=== PATIENT | female | born 1960 | race Caucasian/White ===

== ENCOUNTER 2020-03-02 16:21 | Emergency (ER) | payer OTHER ==
[2020-03-02] MEDS ORDERED: SODIUM CHLORIDE 0.9% 500ML 500 ML IV ONE (16:22)
[2020-03-02 17:40] LABS: BASOPHILS % (AUTO) 1.2 % (0.0-5.0); EOSINOPHILS % (AUTO) 2.7 % (0.0-8.0); HEMATOCRIT 44.1 % (36-48); LYMPHOCYTES % (AUTO) 25.2 % (21.0-51.0); MEAN CORPUSCULAR HGB CONC 31.7 g/dL (32.0-36.0); MEAN CORPUSCULAR VOLUME 81.8 fL (79-99); MONOCYTES % (AUTO) 9.9 % (3.0-13.0); NEUTROPHILS % (AUTO) 60.8 % (40.0-77.0); PLATELET COUNT (AUTO) 210 K/uL (130-400); RED BLOOD CELL COUNT(AUTO) 5.39 MIL/uL (4.00-5.50); RED CELL DISTRIBUTION WIDTH 14.6 % (11.0-15.5)
[2020-03-02] MEDS ORDERED: LORAZEPAM 2 MG/ML 1 ML VIAL ONE (17:40)
[2020-03-02 17:52] LABS: CREATININE 0.9 mg/dL (0.5-1.5); POTASSIUM 3.7 mmol/L (3.5-5.1)
[2020-03-02 17:54] LABS: INR 0.88 (0.85-1.15); PARTIAL THROMBOPLASTIN TIME 25.1 SEC (26.3-35.5); PROTHROMBIN TIME 9.5 SEC (9.6-11.6)
[2020-03-02 17:56] LABS: BILIRUBIN,TOTAL 0.3 mg/dL (0.2-1.0); TOTAL PROTEIN, SERUM 7.6 g/dL (6.0-8.3)
[2020-03-02 18:34] LABS: B-TYPE NATRIURETIC PEPTIDE 9 pg/mL (0-100)
== END 2020-03-02 18:55 | disposition home or self-care (01) ==
LOC: EDH 16:21
DX: M54.6 Pain in thoracic spine (principal); E11.9 Type 2 diabetes mellitus without complications; I10 Essential (primary) hypertension; F41.9 Anxiety disorder, unspecified; F32.9 Major depressive disorder, single episode, unspecified; Z88.8 Allergy status to other drugs, medicaments and biological substances
CPT/HCPCS: 36415; 71045; 80053; 82550; 83880; 84484; 85025; 85610; 85730; 93005; 96374; 99285; J2060; J7040

== ENCOUNTER 2020-11-23 03:36 | Emergency (ER) | payer OTHER ==
[2020-11-23] MEDS ORDERED: MORPHINE 2 MG SYG ONE ×2 (03:46→04:46)
[2020-11-23] MEDS ORDERED: ASPIRIN 325 MG TABLET ONE (03:46)
[2020-11-23 03:58] LABS: BASOPHILS % (AUTO) 1.1 % (0.0-5.0); EOSINOPHILS % (AUTO) 3.2 % (0.0-8.0); LYMPHOCYTES % (AUTO) 33.6 % (21.0-51.0); MEAN CORPUSCULAR HEMOGLOBIN 25.4 pg (27.0-33.0); MEAN CORPUSCULAR HGB CONC 31.1 g/dL (32.0-36.0); MEAN CORPUSCULAR VOLUME 81.6 fL (79-99); MONOCYTES % (AUTO) 11.4 % (3.0-13.0); NEUTROPHILS % (AUTO) 50.4 % (40.0-77.0); PLATELET COUNT (AUTO) 221 K/uL (130-400); RED BLOOD CELL COUNT(AUTO) 5.39 MIL/uL (4.00-5.50); WHITE BLOOD COUNT (AUTO) 7.5 K/uL (4.8-10.8)
[2020-11-23 04:07] LABS: CREATININE 0.9 mg/dL (0.5-1.5); POTASSIUM 3.4 mmol/L (3.5-5.1)
[2020-11-23 04:11] LABS: ALBUMIN 4.2 g/dL (3.5-5.0); BILIRUBIN,TOTAL 0.3 mg/dL (0.2-1.0); TOTAL PROTEIN, SERUM 8.1 g/dL (6.0-8.3)
[2020-11-23 04:16] LABS: INR 0.9 (0.85-1.15); PROTHROMBIN TIME 9.9 SEC (9.6-11.6)
[2020-11-23 04:17] LABS: PARTIAL THROMBOPLASTIN TIME 24.9 SEC (26.3-35.5)
[2020-11-23] MEDS ORDERED: LIDOCAINE 5% TOPICAL PATCH TP ONE (04:45)
[2020-11-23] MEDS ORDERED: KETOROLAC 30MG VIAL (30MG/ML) ONE (04:46)
[2020-11-23] MEDS ORDERED: DIAZEPAM 5 MG TABLET ONE (04:46)
== END 2020-11-23 06:16 | disposition home or self-care (01) ==
LOC: EDH 03:36
DX: M62.830 Muscle spasm of back (principal); F41.9 Anxiety disorder, unspecified; F32.9 Major depressive disorder, single episode, unspecified; E11.9 Type 2 diabetes mellitus without complications; E78.00 Pure hypercholesterolemia, unspecified; I10 Essential (primary) hypertension; K21.9 Gastro-esophageal reflux disease without esophagitis; Z88.6 Allergy status to analgesic agent
CPT/HCPCS: 36415; 71045; 80053; 82550; 84484; 85025; 85378; 85610; 85730; 93005; 96374; 96375; 99285; J1885

== ENCOUNTER 2021-09-10 14:14 | Emergency (ER) | payer OTHER ==
[~2021-09-10] VITALS: Ht 152.4 cm; Wt 74.8 kg
[2021-09-10 14:18] VITALS: BP 158/91
[2021-09-10] MEDS ORDERED: ACETAMINOPHEN WITH CODEINE 1 TAB TAB PO ONE (17:30)
[2021-09-10] MEDS ORDERED: IBUPROFEN 600 MG TABLET PO ONE (17:30)
[2021-09-10] MEDS ORDERED: IBUP-2070 PO (18:01)
[2021-09-10] MEDS ORDERED: ORPH-43 PO (18:01)
== END 2021-09-10 18:14 | disposition home or self-care (01) ==
LOC: EDH 14:14 → EEVIPCON 14:14 → EDH 18:14
DX: S09.90XA Unspecified injury of head, initial encounter (principal); M54.2 Cervicalgia; Z88.8 Allergy status to other drugs, medicaments and biological substances; Y04.2XXA Assault by strike against or bumped into by another person, initial encounter; Y93.89 Activity, other specified; Y92.89 Other specified places as the place of occurrence of the external cause; Y99.8 Other external cause status
CPT/HCPCS: 70450; 72125

== ENCOUNTER → 2021-12-11 | Outpatient (CLI) | payer OTHER ==
[~2021-12-11] MED LIST: IBUP-2070 PO; ORPH-43 PO
== END | disposition home or self-care (01) ==
LOC: RAH 10:00
PROVIDERS: ATTEND Orthopaedic Surgery
DX: M17.12 Unilateral primary osteoarthritis, left knee (principal); M25.762 Osteophyte, left knee; M16.0 Bilateral primary osteoarthritis of hip; M25.752 Osteophyte, left hip; M25.751 Osteophyte, right hip; M19.072 Primary osteoarthritis, left ankle and foot; M77.32 Calcaneal spur, left foot
CPT/HCPCS: 73700

== ENCOUNTER 2022-04-22 10:39 | Emergency (ER) | payer OTHER ==
[~2022-04-22] VITALS: Ht 152.4 cm; Wt 72.6 kg
[2022-04-22 11:05] LABS: APPEARANCE,URINE Clear (CLEAR); BILIRUBIN,URINE Negative (NEGATIVE); COLOR,URINE Yellow (YELLOW); GLUCOSE, URINE (UA) Negative (NEGATIVE); KETONES,URINE Trace mg/dL (NEGATIVE); LEUKOCYTE ESTERASE ,URINE Trace (NEGATIVE); NITRATE,URINE Negative (NEGATIVE); OCCULT BLOOD,URINE Negative (NEGATIVE); PH,URINE 7.5 (5.0-8.0); PROTEIN,URINE Negative (NEGATIVE); UROBILINOGEN,URINE 0.2 mg/dL (0.2-1.0)
[2022-04-22] MEDS ORDERED: LORAZEPAM 2 MG/ML 1 ML VIAL IVP ONE (11:30)
[2022-04-22] MEDS ORDERED: DiphenhydrAMINE HCL 50 MG/ML VIAL IV ONE (11:30)
[2022-04-22] MEDS ORDERED: SOLU-MEDROL 125MG VIAL IVP ONE (11:30)
[2022-04-22] MEDS ORDERED: ACETAMINOPHEN 500 MG TABLET PO ONE (11:30)
[2022-04-22] MEDS ORDERED: FAMOTIDINE 20MG VIAL IV ONE (11:30)
[2022-04-22 11:49] LABS: BACTERIA,URINE Rare /HPF (None Seen); MUCUS,URINE Few LPF (None Seen); RBC,URINE None Seen /HPF (0-1); SQUAMOUS EPITHELIAL CELL,UR Rare /HPF (0-2); WBC,URINE 0-1 /HPF (0-1)
[2022-04-22 11:57] LABS: CREATININE 0.9 mg/dL (0.5-1.5); POTASSIUM 4.1 mmol/L (3.5-5.1)
[2022-04-22 12:01] LABS: ALBUMIN 4.1 g/dL (3.5-5.0); BASOPHILS % (AUTO) 0.8 % (0.0-5.0); EOSINOPHILS % (AUTO) 0.4 % (0.0-8.0); HEMATOCRIT 43.3 % (36-48); LYMPHOCYTES % (AUTO) 10.3 % (21.0-51.0); MEAN CORPUSCULAR HGB CONC 32.1 g/dL (32.0-36.0); MEAN CORPUSCULAR VOLUME 80.9 fL (79-99); MONOCYTES % (AUTO) 7.3 % (3.0-13.0); NEUTROPHILS % (AUTO) 80.8 % (40.0-77.0); PLATELET COUNT (AUTO) 185 K/uL (130-400); RED BLOOD CELL COUNT(AUTO) 5.35 MIL/uL (4.00-5.50); RED CELL DISTRIBUTION WIDTH 14.4 % (11.0-15.5); WHITE BLOOD COUNT (AUTO) 7.7 K/uL (4.8-10.8)
[2022-04-22] MEDS ORDERED: PRED20TA3 PO (12:26)
[2022-04-22] MEDS ORDERED: FAMO-136 PO (12:26)
[2022-04-22] MEDS ORDERED: CETI1SOL17 PO (12:26)
[2022-04-22 12:47] VITALS: BP 113/63
== END 2022-04-22 12:42 | disposition home or self-care (01) ==
LOC: EDH 10:39
DX: T80.62XA Other serum reaction due to vaccination, initial encounter (principal); F41.9 Anxiety disorder, unspecified; R50.9 Fever, unspecified; R06.00 Dyspnea, unspecified; R07.89 Other chest pain; T50.B95A Adverse effect of other viral vaccines, initial encounter; Z20.822 Contact with and (suspected) exposure to COVID-19; M19.90 Unspecified osteoarthritis, unspecified site; Z79.899 Other long term (current) drug therapy; Z98.890 Other specified postprocedural states; Z90.49 Acquired absence of other specified parts of digestive tract; Z88.8 Allergy status to other drugs, medicaments and biological substances; Y92.89 Other specified places as the place of occurrence of the external cause
CPT/HCPCS: 99285; 96374; 96375; 71045; 87635; 84484; 80053; 85025; 87880; 87804 ×2; 81001; 36415; 93005; C9803; J1200; J3490; J2930; J2060

== ENCOUNTER → 2022-07-28 | Outpatient (CLI) | payer OTHER ==
[~2022-07-28] MED LIST changes: +CETI1SOL17 PO; +FAMO-136 PO; +PRED20TA3 PO
== END | disposition home or self-care (01) ==
LOC: RAH 14:16
PROVIDERS: ATTEND Internal Medicine Cardiovascular Disease
DX: M17.12 Unilateral primary osteoarthritis, left knee (principal); G95.89 Other specified diseases of spinal cord; M25.762 Osteophyte, left knee
CPT/HCPCS: 73700

== ENCOUNTER 2022-08-05 05:45 | Observation (INO) | payer OTHER ==
[2022-07-31 07:58] LABS: BASOPHILS % (AUTO) 1.1 % (0.0-5.0); EOSINOPHILS % (AUTO) 6.9 % (0.0-8.0); HEMATOCRIT 40.5 % (36-48); LYMPHOCYTES % (AUTO) 30.7 % (21.0-51.0); MEAN CORPUSCULAR HEMOGLOBIN 26.5 pg (27.0-33.0); MEAN CORPUSCULAR HGB CONC 32.1 g/dL (32.0-36.0); MEAN CORPUSCULAR VOLUME 82.5 fL (79-99); MONOCYTES % (AUTO) 10.6 % (3.0-13.0); NEUTROPHILS % (AUTO) 50.7 % (40.0-77.0); PLATELET COUNT (AUTO) 209 K/uL (130-400); RED BLOOD CELL COUNT(AUTO) 4.91 MIL/uL (4.00-5.50); RED CELL DISTRIBUTION WIDTH 15.5 % (11.0-15.5); WHITE BLOOD COUNT (AUTO) 4.6 K/uL (4.8-10.8)
[2022-07-31 08:13] LABS: CREATININE 0.8 mg/dL (0.5-1.5); POTASSIUM 3.5 mmol/L (3.5-5.1)
[2022-07-31 08:39] LABS: INR 0.93 (0.85-1.15); PROTHROMBIN TIME 9.6 SEC (9.6-11.6)
[2022-07-31 08:41] LABS: PARTIAL THROMBOPLASTIN TIME 25.5 SEC (26.3-35.5)
[2022-08-04 08:48] VITALS: BP 133/73
[2022-08-05] VITALS (29 sets, daily range): BP systolic 97–169; BP diastolic 54–90
[~2022-08-05] VITALS: Ht 152.4 cm; Wt 71.7 kg
[~2022-08-05 05:45] MED LIST changes: +ACET-3540 PO; +ATOR20TA65 PO; +BUPR-317 PO; +CETI-89 PO; -CETI1SOL17 PO; -FAMO-136 PO; +MONT10TA21 PO; -ORPH-43 PO; -PRED20TA3 PO; +ROPIVACAINE 0.5% 5MG/ML 30ML IJ ONE; +SEMA1PEN3 SQ; +SENN-107 PO
[2022-08-05] MEDS ORDERED: 0.9%NACL 1000ML 1,000 ML IV ONE (06:05)
[2022-08-05] MEDS ORDERED: CEFAZOLIN SODIUM 1 GM VIAL ONE (06:05)
[2022-08-05] MEDS ORDERED: TRANEXAMIC ACID 1000MG/10ML ONE (06:25)
[2022-08-05] MEDS ORDERED: GLYCOPYRROLATE 1 MG/5 ML SYRINGE ONE (07:08)
[2022-08-05] MEDS ORDERED: LIDOCAINE PF 100MG/5ML (2%) SYRINGE 5ML ONE (07:08)
[2022-08-05] MEDS ORDERED: PROPOFOL 10 MG/ML 20ML VIAL IV ONE (07:08)
[2022-08-05] MEDS ORDERED: NEOSTIGMINE 5MG/5ML SYR IV ONE (07:08)
[2022-08-05] MEDS ORDERED: DEXAMETHASONE SOD PHOSPHATE 10MG/ML 1ML VIAL ONE (07:08)
[2022-08-05] MEDS ORDERED: SUCCINYLCHOLINE 200MG/10ML SYR ONE (07:08)
[2022-08-05] MEDS ORDERED: ONDANSETRON 4MG INJ ONE ×2 (07:08→10:01)
[2022-08-05] MEDS ORDERED: MIDAZOLAM HCL 1 MG/ML 2ML VIAL ONE (07:09)
[2022-08-05] MEDS ORDERED: ROCURONIUM 10MG/1ML SYR 10 MG/ML ML ONE (07:09)
[2022-08-05] MEDS ORDERED: FENTANYL CITRATE PF 50 MCG/1 ML 2ML VIAL ONE (07:11)
[2022-08-05] MEDS ORDERED: CEFAZOLIN SODIUM 2 GM VIAL IVP ONE (07:26)
[2022-08-05] MEDS ORDERED: HYDROCODONE/ACETAMINOPHEN 10/325 MG TAB PO PRN (07:30)
[2022-08-05] MEDS ORDERED: SENNOSIDES PO PRN (07:30)
[2022-08-05] MEDS ORDERED: LIDOCAINE HCL-MPF 1% 2ML VIAL IV PRN (07:30)
[2022-08-05] MEDS ORDERED: DOCUSATE SODIUM PO PRN (07:30)
[2022-08-05] MEDS: 0.9%NACL 1000ML 1,000 ML IV SCH ×2 (07:30→17:30)
[2022-08-05] MEDS: ACETAMINOPHEN 500 MG TABLET PO SCH ×3 (07:30→23:01)
[2022-08-05] MEDS ORDERED: CALDOLOR 800MG+NS 250ML 250 ML IV SCH (07:30)
[2022-08-05] MEDS ORDERED: MORPHINE 4 MG SYG IVP PRN (07:30)
[2022-08-05] MEDS ORDERED: POTASSIUM CHLORIDE 10% ELIXIR 20 MEQ/15 ML UDCUP PO PRN (07:30)
[2022-08-05] MEDS ORDERED: POTASSIUM CHLORIDE 20MEQ/100ML 100 ML IV PRN (07:30)
[2022-08-05] MEDS ORDERED: TRANEXAMIC ACID 1000MG/10ML IV ONE (07:40)
[2022-08-05] MEDS ORDERED: EPHEDRINE SULFATE 50 MG/ML AMPULE ONE (07:57)
[2022-08-05] MEDS ORDERED: LACTATED RINGERS 1000ML 1,000 ML IV SCH (08:00)
[2022-08-05] MEDS ORDERED: CEFAZOLIN SODIUM 1 GM VIAL IVP ONE (08:00)
[2022-08-05] MEDS: ASPIRIN 81 MG EC TAB PO SCH ×2 (09:00→19:40)
[2022-08-05] MEDS: POLYETHYLENE GLYCOL 3350 17 GM POWD.PACK PO SCH (09:00)
[2022-08-05] MEDS: FAMOTIDINE 20MG TAB PO SCH ×2 (09:00→19:40)
[2022-08-05] MEDS: BUPROPION HCL 150 MG TABLET.SA PO SCH (09:00)
[2022-08-05] MEDS ORDERED: MEPERIDINE-PF 25 MG/ML SYG ONE ×3 (09:43→10:22)
[2022-08-05] MEDS ORDERED: CEFAZOLIN SODIUM 1 GM VIAL IVP SCH (12:30)
[2022-08-05] MEDS: TRAMADOL HCL 50 MG TABLET PO SCH ×3 (12:55→23:00)
[2022-08-05] MEDS: ONDANSETRON 4MG INJ IVP PRN ×2 (13:16→19:00)
[2022-08-05] MEDS ORDERED: ALPR0.5T PO (13:27)
[2022-08-05] MEDS ORDERED: COMPOUND IV MISC 1 EACH IVSOLN MISC PRN (14:30)
[2022-08-05] MEDS: CALDOLOR 800MG+NS 250ML 250 ML IV SCH ×2 (14:43→19:40)
[2022-08-05] MEDS: HYDROCODONE/ACETAMINOPHEN 5/325 MG TAB PO PRN (14:48)
[2022-08-05] MEDS: CEFAZOLIN SODIUM 1 GM VIAL IVP SCH (17:30)
[2022-08-05] MEDS: ALPRAZOLAM 0.5 MG TABLET PO PRN (19:40)
[2022-08-05] MEDS: MONTELUKAST SODIUM 10 MG TAB PO SCH (19:40)
[2022-08-06] MEDS: CEFAZOLIN SODIUM 1 GM VIAL IVP SCH (01:19)
[2022-08-06] MEDS: 0.9%NACL 1000ML 1,000 ML IV SCH (03:30)
[2022-08-06 04:39] VITALS: BP 112/58
[2022-08-06] MEDS: TRAMADOL HCL 50 MG TABLET PO SCH ×3 (05:34→18:04)
[2022-08-06] MEDS: CALDOLOR 800MG+NS 250ML 250 ML IV SCH (05:34)
[2022-08-06 05:45] LABS: HEMATOCRIT 34.8 % (36-48); MEAN CORPUSCULAR HEMOGLOBIN 26.2 pg (27.0-33.0); MEAN CORPUSCULAR HGB CONC 31.6 g/dL (32.0-36.0); MEAN CORPUSCULAR VOLUME 82.9 fL (79-99); RED BLOOD CELL COUNT(AUTO) 4.2 MIL/uL (4.00-5.50); RED CELL DISTRIBUTION WIDTH 15.1 % (11.0-15.5)
[2022-08-06 05:58] LABS: CREATININE 0.8 mg/dL (0.5-1.5); POTASSIUM 3.7 mmol/L (3.5-5.1)
[2022-08-06] MEDS: HYDROCODONE/ACETAMINOPHEN 5/325 MG TAB PO PRN ×3 (08:06→18:05)
[2022-08-06 08:36] VITALS: BP 101/58
[2022-08-06] MEDS: FAMOTIDINE 20MG TAB PO SCH ×2 (08:40→20:57)
[2022-08-06] MEDS: POLYETHYLENE GLYCOL 3350 17 GM POWD.PACK PO SCH (08:40)
[2022-08-06] MEDS: BUPROPION HCL 150 MG TABLET.SA PO SCH (08:40)
[2022-08-06] MEDS: ASPIRIN 81 MG EC TAB PO SCH ×2 (08:40→20:58)
[2022-08-06] MEDS: ACETAMINOPHEN 500 MG TABLET PO SCH ×3 (08:40→20:57)
[2022-08-06 11:25] VITALS: BP 88/51
[2022-08-06] MEDS: ONDANSETRON ODT 4MG TAB SL PRN ×2 (12:11→18:09)
[2022-08-06 15:58] VITALS: BP 148/82
[2022-08-06 20:00] VITALS: BP 146/76
[2022-08-06] MEDS: ALPRAZOLAM 0.5 MG TABLET PO PRN (20:57)
[2022-08-06] MEDS: MONTELUKAST SODIUM 10 MG TAB PO SCH (20:57)
[2022-08-06] MEDS: KCL 20 MEQ ERTAB PO PRN (20:58)
[2022-08-06 23:37] VITALS: BP 131/72
[2022-08-07] MEDS: TRAMADOL HCL 50 MG TABLET PO SCH ×3 (03:54→14:17)
[2022-08-07 04:26] VITALS: BP 103/62
[2022-08-07] MEDS: KCL 20 MEQ ERTAB PO PRN (06:33)
[2022-08-07] MEDS: ACETAMINOPHEN 500 MG TABLET PO SCH ×2 (06:34→16:19)
[2022-08-07 07:30] VITALS: BP 139/67
[2022-08-07] MEDS: ONDANSETRON ODT 4MG TAB SL PRN ×3 (07:49→16:19)
[2022-08-07] MEDS: HYDROCODONE/ACETAMINOPHEN 5/325 MG TAB PO PRN (08:12)
[2022-08-07] MEDS: POLYETHYLENE GLYCOL 3350 17 GM POWD.PACK PO SCH (10:19)
[2022-08-07] MEDS: FAMOTIDINE 20MG TAB PO SCH (10:19)
[2022-08-07] MEDS: BUPROPION HCL 150 MG TABLET.SA PO SCH (10:19)
[2022-08-07] MEDS: ASPIRIN 81 MG EC TAB PO SCH (10:20)
[2022-08-07 11:30] VITALS: BP 117/68
[2022-08-07] MEDS ORDERED: BISACODYL 5 MG TABLET.DR PO PRN (12:30)
[2022-08-07 16:00] VITALS: BP 145/82
[2022-08-08] MEDS ORDERED: OMEP20TA2 PO (01:13)
[2022-08-08] MEDS ORDERED: ONDA-104 PO (01:13)
[2022-08-08] MEDS ORDERED: BISACODYL 10 MG SUPP.RECT RC PRN (07:30)
== END 2022-08-07 17:11 | disposition home or self-care (01) ==
LOC: DAH 05:45 → DAHIP 05:46 → 4DH 10:55
PROVIDERS: ADMIT Orthopaedic Surgery; ATTEND Orthopaedic Surgery
DX: M17.12 Unilateral primary osteoarthritis, left knee (principal); Z20.822 Contact with and (suspected) exposure to COVID-19; R11.0 Nausea; Z79.899 Other long term (current) drug therapy; Z98.890 Other specified postprocedural states
CPT/HCPCS: 80048 ×2; 85025; 85610; 85730; 87426; 36415 ×2; 27447; 96376 ×2; 96365; 96366 ×2; 96375; 76942; 64447; 82948 ×8; 97161; 97530 ×5; 93005 ×2; 97039 ×4; 85027; 97116 ×4; G0378 ×49; A4663; J7030 ×2; A4649 ×4; C1776; A4600 ×2; J3010; J0690 ×4; J3490 ×4; J0330; J1100; J2710; J2001; J2250; J2704; J2405 ×5; J2270; J2175 ×3; J2795; J1741; A6223; G0168; A4930; A6255; A6254; A4215; A4223; A4222; A4221

== ENCOUNTER 2022-08-07 23:01 | Emergency (ER) | payer OTHER ==
[~2022-08-07] VITALS: Ht 152.4 cm; Wt 69.9 kg
[~2022-08-07 23:01] MED LIST changes: +ALPR0.5T PO; -ROPIVACAINE 0.5% 5MG/ML 30ML IJ ONE
[2022-08-07 23:06] VITALS: BP 142/85
[2022-08-07] MEDS ORDERED: ONDANSETRON 4MG INJ IVP ONE (23:30)
[2022-08-07] MEDS ORDERED: 0.9%NACL 1000ML 1,000 ML IV ONE (23:30)
[2022-08-07 23:33] LABS: BASOPHILS % (AUTO) 0.5 % (0.0-5.0); EOSINOPHILS % (AUTO) 1.4 % (0.0-8.0); HEMATOCRIT 37.5 % (36-48); LYMPHOCYTES % (AUTO) 11.5 % (21.0-51.0); MEAN CORPUSCULAR HEMOGLOBIN 26.3 pg (27.0-33.0); MEAN CORPUSCULAR VOLUME 82.1 fL (79-99); MONOCYTES % (AUTO) 8.9 % (3.0-13.0); NEUTROPHILS % (AUTO) 77.4 % (40.0-77.0); PLATELET COUNT (AUTO) 214 K/uL (130-400); RED BLOOD CELL COUNT(AUTO) 4.57 MIL/uL (4.00-5.50); WHITE BLOOD COUNT (AUTO) 10.9 K/uL (4.8-10.8)
[2022-08-07 23:43] LABS: CREATININE 0.7 mg/dL (0.5-1.5); POTASSIUM 3.8 mmol/L (3.5-5.1)
[2022-08-07 23:48] LABS: ALBUMIN 3.4 g/dL (3.5-5.0); TOTAL PROTEIN, SERUM 7.6 g/dL (6.0-8.3)
[2022-08-08] MEDS ORDERED: OMEP20TA2 PO (01:13)
[2022-08-08] MEDS ORDERED: ONDA-104 PO (01:13)
== END 2022-08-08 01:42 | disposition home or self-care (01) ==
LOC: EDH 23:01
DX: R11.2 Nausea with vomiting, unspecified (principal); E11.9 Type 2 diabetes mellitus without complications; M19.90 Unspecified osteoarthritis, unspecified site; Z90.49 Acquired absence of other specified parts of digestive tract; Z88.8 Allergy status to other drugs, medicaments and biological substances; Z79.899 Other long term (current) drug therapy; Z98.890 Other specified postprocedural states
CPT/HCPCS: 99283; 80053; 85025; 83605; 36415; 96374; 96361; J2405; J7030